=== PATIENT | female | born 1985 | race African-American/Black ===

== ENCOUNTER 2021-02-05 05:50 | Emergency (ER) | payer OTHER, MEDICAID ==
[~2021-02-05] VITALS: Ht 162.6 cm; Wt 59.0 kg
[~2021-02-05 05:50] MED LIST: PREN-95 PO
[2021-02-05 06:25] VITALS: BP 122/81
== END 2021-02-05 06:29 ==
LOC: ER 05:50
DX: R56.9 Unspecified convulsions (principal); F12.10 Cannabis abuse, uncomplicated; Z88.0 Allergy status to penicillin; Z88.1 Allergy status to other antibiotic agents
CPT/HCPCS: 99283

== ENCOUNTER 2021-02-05 06:50 | Emergency (ER) | payer OTHER, MEDICAID ==
[~2021-02-05] VITALS: Ht 162.6 cm; Wt 59.0 kg
[2021-02-05] MEDS ORDERED: LEVETIRACETAM 1000MG PREMIX 100 ML IV ONE (07:00)
[2021-02-05 07:31] LABS: BASOPHILS % 0.9 % (0.0-2.0); EOSINOPHILS % 1.6 % (0.0-5.0); HEMATOCRIT. 38.4 % (36.0-48.0); HEMOGLOBIN. 12.9 g/dL (12.0-16.0); LYMPHOCYTES % 31.6 % (20.0-50.0); MEAN CORPUSCULAR HEMOGLOBIN 30.8 pg (28.0-32.0); MEAN CORPUSCULAR VOLUME 92.1 fL (81.0-99.0); MEAN PLATELET VOLUME 7.5 fl (7.4-10.4); MONOCYTES % 12.4 % (2.0-8.0); NEUTROPHILS % 53.5 % (40.0-76.0); PLATELET 254 x1000/uL (130-400); RED BLOOD CELL COUNT 4.17 mill/uL (4.2-5.4); RED CELL DISTRIBUTION WIDTH 14.8 % (11.6-14.6)
[2021-02-05 07:38] LABS: CHLORIDE 108 mEq/L (98-107)
[2021-02-05 07:42] LABS: ETHANOL BLOOD 166 mg/dL
[2021-02-05 09:50] VITALS: BP 136/74
== END 2021-02-05 09:58 ==
LOC: ER 06:50
DX: R56.9 Unspecified convulsions (principal); Z88.0 Allergy status to penicillin; Z88.1 Allergy status to other antibiotic agents
CPT/HCPCS: 36415; 70450; 80053; 80320; 82962; 85025; 96365; 99284; J1953; G0480

== ENCOUNTER 2021-11-01 21:11 | Emergency (ER) | payer OTHER ==
[~2021-11-01] VITALS: Ht 170.2 cm; Wt 73.0 kg
[2021-11-01 21:28] VITALS: BP 135/87
[2021-11-02 00:26] LABS: CLARITY URINE CLEAR (CLEAR); COLOR URINE YELLOW (YELLOW); KETONES URINE NEGATIVE (NEGATIVE); LEUKOCYTE ESTERASE URINE NEGATIVE (NEGATIVE); NITRITE URINE NEGATIVE (NEGATIVE); OCCULT BLOOD URINE 3+ (NEGATIVE); PROTEIN URINE NEGATIVE (NEGATIVE); SPECIFIC GRAVITY URINE 1.009 (1.005-1.030); UROBILINOGEN URINE 0.2 E.U./dL (0.2-1.0)
[2021-11-04 19:11] LABS: NEISSERIA GONORRHOEAE NAA Negative (Negative)
== END 2021-11-01 23:25 | disposition left against medical advice (07) ==
LOC: ER 21:11
DX: G89.29 Other chronic pain (principal); R07.0 Pain in throat; Z20.2 Contact with and (suspected) exposure to infections with a predominantly sexual mode of transmission; G40.909 Epilepsy, unspecified, not intractable, without status epilepticus; J45.909 Unspecified asthma, uncomplicated; F99 Mental disorder, not otherwise specified; Z88.0 Allergy status to penicillin; Z20.822 Contact with and (suspected) exposure to COVID-19
CPT/HCPCS: 81003; 81025; 87426; 87491; 87591; 99283; C9803; 87430